=== PATIENT | male | born 1965 | race Caucasian/White ===

== ENCOUNTER 2016-11-19 05:32 | Inpatient (IN) | payer OTHER ==
[2016-10-24 10:40] VITALS: BMI 26.0
[2016-11-19] VITALS (17 sets, daily range): BP systolic 106–153; BP diastolic 65–94; PULSE 53–81; TEMP 36.4–36.6; O2SAT 95–99; Ht 185.4 cm; Wt 89.5 kg
[~2016-11-19] VITALS: Ht 185.4 cm; Wt 89.5 kg
[~2016-11-19 05:32] MED LIST: CYCL10TA6 PO; LACTATED RINGER'S 1000ML 1,000 ML IV SCH; LISI-725 PO; MISSING PHYSICIAN SIGNATURE ON ORDER SCH; OXYC7.5T65 PO; SULF800T23 PO
[2016-11-19] MEDS ORDERED: LACTATED RINGER'S 1000ML 1,000 ML IV SCH (06:00)
[2016-11-19] MEDS ORDERED: CeleBREX 200 MG CAP PO SCH (06:00)
[2016-11-19] MEDS ORDERED: LACTATED RINGER'S 1000ML 500 ML IV ONE (06:00)
[2016-11-19] MEDS ORDERED: PREGABALIN 75 MG CAP PO SCH (06:00)
[2016-11-19] MEDS: CEFAZOLIN 2000 MG/60 ML D5W IV SCH ×2 (06:05→07:25)
[2016-11-19] MEDS ORDERED: MIDAZOLAM HCL 1 MG/ML 2ML VIAL ONE (06:45)
[2016-11-19] MEDS ORDERED: FENTANYL CITRATE INJ 50 MCG/1 ML 2 ML VIAL ONE ×4 (06:45→08:53)
[2016-11-19] MEDS ORDERED: THROMBIN 5000 UNITS KIT ONE (07:09)
[2016-11-19] MEDS ORDERED: BACITRACIN 50000 UNIT VIAL ONE (07:09)
--- NOTE | 2016-11-19 07:14 | History and Physical ---
History & Physical Date Nov 19, 2016. Chief Complaint neck and bilateral arm pain History of Present Illness The patient is a 51 year old male with complaints of above who has had chronic symptoms with associated paresthesias who has had extensive outpatient management including ESIs and PT without lasting relief. 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 He denies myelopathic symptoms. He is attempting to quit smoking. Past Medical/Surgical History lap mónica HTN hi chol smoker Additional History Hepatic Disease: No Endocrine Disorder: No Kidney Disease: No Hypertension: Yes Heart Disease: No Bleeding Tendencies: No Infectious Diseases: No Allergies Coded Allergies: No Known Allergies (Unverified , 11/19/16) Home Medications Scheduled Cyclobenzaprine Hcl (Flexeril), 10 MG PO BID Lisinopril (Zestril), 20 MG PO DAILY Sulfa/Trimethoprim (Bactrim Ds 800MG/160MG), 1 TAB PO BID Scheduled PRN Oxycodone/Acetaminophen 7.5MG/325MG (Percocet 7.5MG/325MG), 1 TAB PO QID PRN for Pain Physical Examination Skin: warm/dry Eyes: normal inspection ENT: normal ENT inspection Head: normocephalic, atraumatic Neck: supple, trachea midline Respiratory/Chest: lungs clear, no respiratory distress Cardiovascular: regular rate, rhythm Back: normal inspection Extremities: normal inspection, normal range of motion Neurologic/Psych: no motor/sensory deficits, alert, normal reflexes, oriented x 3 Diagnosis C6-7 HNP Plan of Treatment C6-7 ACDF
[2016-11-19] MEDS ORDERED: ATROPINE SULFATE 0.1 MG/ML 5ML SYR IV PRN (07:45)
[2016-11-19] MEDS ORDERED: EpHEDrine SULFATE INJ 50 MG/ML AMP IV PRN (07:45)
[2016-11-19] MEDS ORDERED: ONDANSETRON INJ 2 MG/ML 2 ML VIAL IV PRN ×2 (07:45→08:45)
[2016-11-19] MEDS ORDERED: ALBUT/IPRATROP 3MG/0.5MG NEB 3 ML VIAL INH PRN (07:45)
[2016-11-19] MEDS ORDERED: LABETALOL HCL IV 5 MG/ML 20ML IV PRN (07:45)
[2016-11-19] MEDS ORDERED: HYDROmorphone INJ 2 MG/ML SYR/VIAL ONE ×2 (08:14→08:40)
[2016-11-19] MEDS ORDERED: ROCURONIUM BROMIDE 10 MG/ML 5 ML VIAL ONE (08:40)
[2016-11-19] MEDS ORDERED: LIDOCAINE HCL 2% 2 ML VIAL (20MG/ML) ONE (08:40)
[2016-11-19] MEDS ORDERED: LABETALOL HCL IV 5 MG/ML 20ML IV ONE ×2 (08:40→08:41)
[2016-11-19] MEDS ORDERED: DEXAMETHASONE SOD INJ 4 MG/ML VIAL ONE (08:40)
[2016-11-19] MEDS ORDERED: PROPOFOL IV EMULSION 10 MG/ML 20 ML VIAL IV ONE (08:40)
[2016-11-19] MEDS ORDERED: PHENYLEPHRINE 100MCG/ML 5ML SYR ONE (08:40)
[2016-11-19] MEDS ORDERED: NEOSTIGMINE METHYLSULFATE 1 MG/ML 10ML VIAL ONE (08:41)
[2016-11-19] MEDS ORDERED: GLYCOPYRROLATE INJ 0.2 MG/ML VIAL ONE (08:41)
[2016-11-19] MEDS ORDERED: ONDANSETRON INJ 2 MG/ML 2 ML VIAL ONE (08:41)
--- NOTE | 2016-11-19 08:42 | [facility] Post Operative Brief Note ---
Immediate Operative Summary Operative Date Nov 19, 2016. Pre-Operative Diagnosis C6-C7 herniated nucleus pulposus Post-Operative Diagnosis same as pre-operative Procedure(s) Performed C6-C7 Anterior Cervical Discectomy and Fusion with KRISTIE Surgeon Dr. Mahesh Yuen Manufacturing Supervisor 2Nd Shift Surgeon(s) Andrea Snell PA-C Estimated Blood Loss 5ml Findings dict Specimens none
[2016-11-19] MEDS ORDERED: DEXAMETHASONE INJ 8 MG in SYRINGE 0 ML IV PRN (08:45)
[2016-11-19] MEDS ORDERED: DiphenhydrAMINE HCL 50 MG/ML VIAL IV PRN (08:45)
[2016-11-19] MEDS ORDERED: RACEPINEPHRINE 2.25% NEBU SOLN 0.5 ML VIAL INH PRN (08:45)
[2016-11-19] MEDS ORDERED: LORAZEPAM INJ 0.5 MG in SYRINGE 0.75 ML IV PRN (08:45)
[2016-11-19] MEDS ORDERED: HYDROmorphone INJ 0.5 MG/0.5 ML SYR IV PRN (08:45)
[2016-11-19] MEDS ORDERED: LORAZEPAM 0.5 MG TAB PO PRN (08:45)
[2016-11-19] MEDS ORDERED: ACETAMINOPHEN IV 1,000 MG in EMPTY BAG 0 ML IV PRN (08:45)
[2016-11-19] MEDS ORDERED: NALOXONE HCL 0.4 MG/1 ML VIAL/CARP IV PRN (08:45)
[2016-11-19] MEDS: FENTANYL CITRATE INJ 50 MCG/1 ML 2 ML VIAL IV PRN ×4 (08:55→09:10)
--- NOTE | 2016-11-19 09:13 | DIAGNOSTIC IMAGING REPORT ---
CERVICAL 2 OR 3 VIEWS CLINICAL HISTORY: C6-C7 ACDF COMPARISON STUDY: No previous studies for comparison. Fluoroscopy time: 16 seconds. FINDINGS: 2 fluoroscopic images demonstrate findings consistent with a C6-C7 anterior discectomy and fusion. There is a surgical drain. IMPRESSION: Expected findings following C6-C7 anterior discectomy and fusion. Electronically signed by: Erasmo Willoughby M.D. 11/19/2016 9:11 AM Dictated Date/Time: 11/19/2016 9:04 AM
[2016-11-19] MEDS: HYDROmorphone INJ 1 MG/ML SYR IV PRN ×7 (09:15→19:19)
--- NOTE | 2016-11-19 09:40 | Anesthesiology Progress Note ---
Anesthesia Post Op Note Date & Time Nov 19, 2016 at 09:40 Vital Signs Pain Intensity: 5.0 Vital Signs Past 12 Hours Date Time Temp Pulse Resp B/P Pulse Ox O2 Delivery O2 Flow Rate FiO2 11/19/16 09:30 68 13 121/87 94 Nasal Cannula 3 11/19/16 09:20 71 14 128/87 95 Nasal Cannula 3 11/19/16 09:10 68 16 117/90 97 Mask 5 11/19/16 09:00 67 16 128/97 97 Mask 10 11/19/16 08:52 36.0 82 16 129/81 95 Mask 10 11/19/16 05:45 36.5 69 18 153/94 99 Room Air Notes Mental Status: alert / awake / arousable, participated in evaluation Pt Amnestic to Procedure: Yes Nausea / Vomiting: adequately controlled Pain: improving with treatment Airway Patency, RR, SpO2: stable & adequate BP & HR: stable & adequate Hydration State: stable & adequate Anesthetic Complications: no major complications apparent
[2016-11-19] MEDS ORDERED: IV FLUIDS COMPLETED PRN (09:45)
[2016-11-19] MEDS: SODIUM CHLORIDE 0.9% 1000ML 1,000 ML IV SCH ×2 (11:08→21:18)
[2016-11-19] MEDS ORDERED: SCOPOLAMINE 1.5 MG TDSY TD SCH (12:00)
[2016-11-19] MEDS: CHECK SCOPOLAMINE PATCH PLACEMENT SCH ×2 (16:00→23:47)
[2016-11-19] MEDS: CEFAZOLIN IV 1,000 MG in DEXTROSE 5% 50ML 50 ML IV SCH ×2 (17:01→23:45)
[2016-11-19] MEDS: DEXAMETHASONE INJ 6 MG in SYRINGE 0 ML IV SCH ×2 (17:01→23:45)
[2016-11-19] MEDS: OXYCODONE HCL IR 5 MG TAB (IMMEDIATE RELEASE) PO PRN (21:16)
[2016-11-20] VITALS (9 sets, daily range): BP systolic 100–126; BP diastolic 61–78; PULSE 65–87; TEMP 36.4–36.7; O2SAT 93–95
[2016-11-20] MEDS: HYDROmorphone INJ 1 MG/ML SYR IV PRN ×3 (00:59→08:17)
[2016-11-20] MEDS ORDERED: OXYC7.5T65 PO (06:48)
--- NOTE | 2016-11-20 06:49 | Discharge Instructions ---
Discharge Instructions Date of Service Nov 20, 2016. Admission Reason for Admission: Cervical Spinal Stenosis Discharge Discharge Diagnosis / Problem: same Discharge Goals Goal(s): Decrease discomfort Activity Recommendations Activity Limitations: per Instructions/Follow-up section . Instructions / Follow-Up Instructions / Follow-Up ACTIVITY RECOMMENDATIONS: SELF CARE INSTRUCTIONS AFTER CERVICAL FUSIONS 1. No smoking. Smoking drastically decreases the chance of a solid fusion. 2. No bending, lifting more than 5 pounds, or twisting (roll like a log when turning in bed). 3. You may shower 3 days after surgery. Thoroughly dry wound. Do not soak in the tub. 4. Cervical collar: Must be worn at all times including sleeping. You may remove the brace only to bath, eat and if you are sitting in a recliner. 5. Please walk as much as you can for exercise. Gradually increase the distance that you walk as your endurance increases. SPECIAL CARE INSTRUCTIONS: VERY IMPORTANT TO READ AND REVIEW A. Do not take any anti-inflammatory medications (i.e. Indocin, Advil, Aspirin, Naprosyn, Aleve, Motrin, etc.) as these may inhibit the chance of a solid fusion. Tylenol is okay to take. B. Your surgical incision has been closed with a cosmetic suture under the skin that will dissolve in about 6 weeks. In 14 days, you can use a pair of clean scissors and cut the suture that is left outside of the skin at the ends of your incision. C. Complications are uncommon, but please contact us if you have any signs or symptoms of: 1. wound infection (fever higher than 102.5 degrees F, redness, separation of wound, drainage, or increasing pain from the incision) 2. blood clots in legs (pain, swelling, redness and warmth in legs) 3. urinary tract infection (fever higher than 102.5 degrees, burning upon urination or increased frequency of urination) 4. nerve problems (inability to walk on your toes or heels, numbness, loss of bowel or bladder control) 5. any other symptoms that concern you. D. Please call the office at if you have any concerns or questions about your operation or recovery. MANAGING PAIN AFTER SPINAL SURGERY 1. Narcotic medication is intended for short-term use and will be provided for surgical pain. Surgical pain usually lasts for a period of 4-6 weeks. Narcotic medication includes Percocet, Vicodin, Darvocet, Tylenol #3 or Lortab. 2. Longer-term pain is more appropriately treated with non-narcotic medication such as Tylenol ES. 3. Muscle spasm is not appropriately treated with narcotics. Muscle relaxers such as Soma, Flexeril or Skelaxin can be used along with Tylenol ES. 4. Remember that we all live with some "aches and pains". This is not unusual or uncommon after an injury or as we get older. 5. We will provide appropriate medication within the normal guidelines of their prescribed use. We will also be very cautious and aware of potential abuse and extended duration of patients' medication needs. 6. Please allow 2-3 days to process refills. Prescriptions will not be mailed but must be picked up at the office. FOLLOW UP VISIT: Keep your scheduled follow-up appointment. Any questions, please call the office at . Current Hospital Diet Patient's current hospital diet: Clear Liquid Diet Discharge Diet Recommended Diet: Regular Diet Procedures Procedures Performed: C6-C7 Anterior Cervical Discectomy and Fusion with PEEK Pending Studies Studies pending at discharge: no Medical Emergencies . Who to Call and When: Medical Emergencies: If at any time you feel your situation is an emergency, please call 911 immediately. . Non-Emergent Contact Non-Emergency issues call your: Surgeon . "Provider Documentation" section prepared by Mahesh Yuen. VTE Core Measure Inpt VTE Proph given/why not?: SCD's [place] Drug Monitoring Program Search Results: patient reviewed within database, no issues identified
--- NOTE | 2016-11-20 06:50 | Orthopedic Progress Note ---
Orthopedic Progress Note Date of Service Nov 20, 2016. Subjective Post OP Day: 1 Reports: feeling well, pain controlled w PO medications, Denies: SOB, calf pain , chest pain, complaints, light headedness, nausea / vomiting, using UNDERGROUND FOREMAN Objective calves soft nontender, N/V intact, dressing C/D/I, A&O x3 Date Time Temp Pulse Resp B/P Pulse Ox O2 Delivery O2 Flow Rate FiO2 11/20/16 06:30 36.5 75 16 105/68 93 Room Air 11/20/16 04:30 36.4 67 16 100/61 94 Room Air 11/20/16 03:42 79 14 94 Room Air 11/20/16 02:29 36.5 65 16 105/67 95 Room Air 11/20/16 00:30 36.4 71 16 114/70 94 Room Air 11/20/16 00:15 Room Air 11/19/16 23:48 75 14 95 Room Air 11/19/16 23:09 36.6 78 18 122/78 97 Room Air 11/19/16 20:30 36.4 68 18 114/69 98 Room Air 11/19/16 20:28 71 16 97 Room Air 11/19/16 18:30 36.6 66 18 120/79 98 Room Air 11/19/16 18:30 36.6 66 18 120/79 98 Room Air 11/19/16 16:31 36.4 65 16 106/69 97 Room Air 11/19/16 16:03 65 16 98 Room Air 11/19/16 16:00 97 Room Air 11/19/16 15:18 36.4 66 16 106/69 97 Room Air 11/19/16 13:30 36.6 81 18 114/68 98 Nasal Cannula 3.0 Humidified Oxygen 11/19/16 12:28 36.6 64 18 111/65 98 Nasal Cannula 3.0 Humidified Oxygen 11/19/16 11:28 36.5 56 16 120/84 99 Room Air 3.0 Humidified Oxygen 11/19/16 11:19 53 16 99 Nasal Cannula 3.0 11/19/16 11:02 99 Nasal Cannula 3.0 Humidified Oxygen 11/19/16 11:00 36.5 80 16 122/83 98 Nasal Cannula 3.0 Humidified Oxygen 11/19/16 10:57 99 Nasal Cannula 3.0 11/19/16 10:30 36.4 61 16 127/82 99 Nasal Cannula 3.0 Humidified Oxygen 11/19/16 10:00 55 14 113/81 95 Nasal Cannula 3 11/19/16 09:50 36.2 60 14 118/83 96 Nasal Cannula 3 11/19/16 09:40 61 14 135/93 94 Nasal Cannula 3 11/19/16 09:30 68 13 121/87 94 Nasal Cannula 3 11/19/16 09:20 71 14 128/87 95 Nasal Cannula 3 11/19/16 09:10 68 16 117/90 97 Mask 5 11/19/16 09:00 67 16 128/97 97 Mask 10 11/19/16 08:52 36.0 82 16 129/81 95 Mask 10 Assessment & Plan Assessment: doing well, gato PO, ambulatory. Plan: d/c home Discharge Planning Discharge Planning: home Pain Management: Percocet DVT Prophylaxis: SCDs
[2016-11-20] MEDS: CHECK SCOPOLAMINE PATCH PLACEMENT SCH (07:36)
[2016-11-20] MEDS: CEFAZOLIN IV 1,000 MG in DEXTROSE 5% 50ML 50 ML IV SCH (07:36)
[2016-11-20] MEDS: DEXAMETHASONE INJ 6 MG in SYRINGE 0 ML IV SCH (07:36)
[2016-11-20] MEDS ORDERED: LISINOPRIL 20 MG TAB PO SCH (09:00)
[2016-11-20] MEDS: OXYCODONE HCL IR 5 MG TAB (IMMEDIATE RELEASE) PO PRN (09:49)
--- NOTE | 2016-11-20 09:49 | Anesthesiology Progress Note ---
Anesthesia Post Op Note Date & Time Nov 20, 2016 at 09:49 Vital Signs Vital Signs Past 12 Hours Date Time Temp Pulse Resp B/P Pulse Ox O2 Delivery O2 Flow Rate FiO2 11/20/16 08:30 36.7 87 16 126/78 95 Room Air 11/20/16 08:01 86 12 95 Room Air 11/20/16 07:10 Room Air 11/20/16 06:59 36.6 66 20 113/74 93 Room Air 11/20/16 06:30 36.5 75 16 105/68 93 Room Air 11/20/16 04:30 36.4 67 16 100/61 94 Room Air 11/20/16 03:42 79 14 94 Room Air 11/20/16 02:29 36.5 65 16 105/67 95 Room Air 11/20/16 00:30 36.4 71 16 114/70 94 Room Air 11/20/16 00:15 Room Air 11/19/16 23:48 75 14 95 Room Air 11/19/16 23:09 36.6 78 18 122/78 97 Room Air Notes Mental Status: alert / awake / arousable, participated in evaluation Pt Amnestic to Procedure: Yes Nausea / Vomiting: adequately controlled Pain: adequately controlled Airway Patency, RR, SpO2: stable & adequate BP & HR: stable & adequate Hydration State: stable & adequate Anesthetic Complications: no major complications apparent
--- NOTE | 2016-11-26 14:33 | Discharge Summary ---
Orthopedic Discharge Summary Admission Date/Reason Nov 19, 2016 at 06:30 Cervical Spinal Stenosis. Discharge Date/Disposition Nov 20, 2016 Home Diagnosis Principal Diagnosis: cervical stenosis Procedure(s) Performed ACDF C6-7 Medication Reconciliation Continued Medications: Cyclobenzaprine Hcl (Flexeril) 10 Mg Tab 10 MG PO BID, #21 TAB Lisinopril (Zestril) 20 Mg Tab 20 MG PO DAILY, TAB Oxycodone/Acetaminophen 7.5MG/325MG (Percocet 7.5MG/325MG) Tab 1 TAB PO QID PRN for Pain, #60 TAB (This prescription has been renewed) PRN PAIN Discontinued Medications: Sulfa/Trimethoprim (Bactrim Ds 800MG/160MG) Tab 1 TAB PO BID, #6 TAB STARTED ON 10/23/16 FOR UTI Admission Physical Exam As per Admitting History & Physical. Hospital Course He was admitted for elective surgery and underwent uneventful procedure. POD 1 he demonstrated no neck pain or swelling, tolerated his diet, had no dysphagia, and was ambulatory independently. He was discharged home in stable condition. Discharge Instructions Please refer to the electronic Patient Visit Report (Discharge Instructions) for additional information.
--- NOTE | 2016-11-26 14:54 | OPERATIVE REPORT ---
DATE OF OPERATION: 11/19/2016 PREOPERATIVE DIAGNOSES: 1. C6-C7 cervical stenosis. 2. C6-C7 nucleus pulposus and degenerative disk disease. POSTOPERATIVE DIAGNOSIS: Same. PROCEDURES: 1. Anterior cervical discectomy and fusion and application of PEEK intervertebral spacer with local autograft and DBM putty, C6-C7. 2. Anterior cervical instrumentation with anterior cervical LDR blade plates, C6-C7. SURGEON: Dr. uYen. SEALING MACHINE OPERATOR: Andrea Snell PA-C. Please note he participated in all portions of the procedure and was critical for performance of the procedure, participated in positioning, prepping, draping, retraction and wound closure. ANESTHESIA: General endotracheal anesthesia. COMPLICATIONS: None. ESTIMATED BLOOD LOSS: Minimal: PROCEDURE: After identification of patient and operative level, he was brought to the OR where he underwent induction of general anesthesia. He was then positioned supine on the [facility] OR table. All bony prominences were well padded. Arms were tucked at sides and well padded. Shoulders were taped distally and anterior neck was sterilely prepped and draped in usual fashion. Antibiotics were administered. Time-out was performed, level was confirmed and transverse skin incision made on the right side of the neck at the level of the cricoid cartilage. I divided the platysma in line with the incision and performed a routine anterior cervical exposure with blunt dissection. I identified the presumptive disk space and confirmed it with a marker, fluoroscopy and marked with electrocautery. Will the longus colli, I placed self-retaining cervical retractor deep to the longus colli and placed Homer pins in the bodies of C6 and C7 and applied slight distraction across the pins, reconfirmed level and then did a complete discectomy at C6-C7. I took down the posterior osteophytes with a elly, removed the posterior annulus, PLL and removed disk material posterior to the disk space and confirmed that the foramen were wide open. I could pass a probe through the neural foramina bilaterally and then decorticated the endplates at C6-C7 with a high speed elly and determined graft size with trial sizers. I then inserted a PEEK cage filled with local bone and DBM putty into the defect. Tamped into position, checked position with fluoroscopy, released the Homer distraction, removed the pins in place LDR blade plates through the cage into the vertebral bodies of C6-C7 had good purchase. I then removed the insertion handle, irrigated with bacitracin solution and confirmed hemostasis and closed over a small round drain. All sponge and needle counts were correct at the end of the case. I attest to the content of the Intraoperative Record and any orders documented therein. Any exceptio ns are noted below.
== END 2016-11-20 10:38 | disposition home or self-care (01) | DRG 473 ==
LOC: ENRESERVTM → ENRESERVDT → C.ACU 05:32 → C.3E 06:30 → EDBEDREQ 09:56
PROVIDERS: ADMIT Orthopaedic Surgery Orthopaedic Surgery of the Spine; ATTEND Orthopaedic Surgery Orthopaedic Surgery of the Spine
PROC: 0RT30ZZ Resection of Cervical Vertebral Disc, Open Approach (ICD-10-PCS; principal; 2016-11-19 07:30)
PROC: 0RG10A0 Fusion of Cervical Vertebral Joint with Interbody Fusion Device, Anterior Approach, Anterior Column, Open Approach (ICD-10-PCS; principal; 2016-11-19 07:30)
DX: M50.20 Other cervical disc displacement, unspecified cervical region (principal); I10 Essential (primary) hypertension; F17.200 Nicotine dependence, unspecified, uncomplicated; E78.00 Pure hypercholesterolemia, unspecified; M48.02 Spinal stenosis, cervical region; M50.323 Other cervical disc degeneration at C6-C7 level